=== PATIENT | female | born 1960 | race Caucasian/White ===

== ENCOUNTER → 2023-12-08 13:38 | Outpatient (REF) | payer MEDICARE, SELFPAY | LOC: WDC 13:38 | PROVIDERS: ATTENDING PHYSICIAN Obstetrics & Gynecology; FAMILY PHYSICIAN Internal Medicine | DX: Z12.31 Encounter for screening mammogram for malignant neoplasm of breast (principal) | CPT/HCPCS: 77063; 77067 ==

== ENCOUNTER → 2023-12-15 12:15 | Outpatient (REF) | payer MEDICARE, SELFPAY | LOC: RAD 12:15 | PROVIDERS: ATTENDING PHYSICIAN Obstetrics & Gynecology; FAMILY PHYSICIAN Internal Medicine | DX: Z78.0 Asymptomatic menopausal state (principal) | CPT/HCPCS: 77080 ==

== ENCOUNTER → 2024-01-05 10:46 | Outpatient (REF) | payer MEDICARE, SELFPAY | LOC: PAVMRI 10:46 | PROVIDERS: ATTENDING PHYSICIAN Psychiatry & Neurology Neurology; FAMILY PHYSICIAN Internal Medicine | DX: G35 Multiple sclerosis (principal) | CPT/HCPCS: 70551; 72141; 72146 ==

== ENCOUNTER → 2025-01-24 14:40 | Outpatient (REF) | payer MEDICARE, SELFPAY | LOC: WDC 14:40 | PROVIDERS: ATTENDING PHYSICIAN Obstetrics & Gynecology; FAMILY PHYSICIAN Internal Medicine | DX: Z12.31 Encounter for screening mammogram for malignant neoplasm of breast (principal) | CPT/HCPCS: 77063; 77067 ==